=== PATIENT | male | born 1970 | race Caucasian/White ===

== ENCOUNTER 2019-10-21 21:50 | Inpatient (IN) ==
[2019-10-22] MEDS ORDERED: Naloxone 0.4 MG/ML INJ IVP PRN (00:53)
[2019-10-22 01:44] LABS: Basophils # 0.1 K/mcL (0.0-0.2); Basophils % 0.8 %; Eosinophils # 0.2 K/mcL (0.0-0.6); Eosinophils % 1.4 %; Hematocrit 50.4 % (37.5-50.1); Hemoglobin 16.3 g/dL (12.9-16.9); Immature Granulocytes % 0.3 % (0-4); Lymphocytes # 2.5 K/mcL (0.6-4.6); Lymphocytes % 20.3 %; Mean Corpuscular HGB Conc 32.3 g/dL (31.6-35.5); Mean Corpuscular Hemoglobin 31.1 pg (28.0-33.3); Mean Corpuscular Volume 96.2 fL (83.0-100.0); Mean Platelet Volume 9.9 fL (9.4-12.4); Monocytes # 0.9 K/mcL (0.0-1.3); Monocytes % 7.2 %; Neutrophils # 8.5 K/mcL (1.6-8.9); Platelet Count 263 K/mcL (140-400); Red Blood Count 5.24 M/mcL (4.19-5.50); Red Cell Distribution Width 12.6 % (11.5-14.5); White Blood Count 12.2 K/mcL (4.3-11.1)
[2019-10-22 02:04] LABS: BUN/Creatinine Ratio 11 (6-26); Blood Urea Nitrogen 10 mg/dL (6-20); Calcium 9.1 mg/dL (8.6-10.3); Carbon Dioxide 24 mEq/L (23-29); Chloride 103 mEq/L (98-107); Glucose 107 mg/dL (70-105); Osmolality,Calculated 284 (280-300); Potassium 3.8 mEq/L (3.5-5.1); Sodium 137 mEq/L (136-145); eGFR For African Americans > 60 (> 60); eGFR For Non-African Americans > 60 (> 60)
[2019-10-22 02:11] LABS: Troponin I 0.35 ng/mL (< 0.04)
[2019-10-22] MEDS ORDERED: *HR* Heparin 5,000 UNIT/ML VIAL IVP PRN ×2 (03:58)
[2019-10-22] MEDS ORDERED: *HR* Heparin 5,000 UNIT/ML VIAL IVP ONE (03:58)
[2019-10-22] MEDS: Heparin 25,000 UNIT/250 ML D5W 25,000 UNIT/250 ML IV.SOLN IVC SCH ×2 (06:07→06:38)
[2019-10-22 07:12] LABS: Heparin anti-factor XA UFH 0.11 IU/mL (0.30-0.70); INR 1.1; Prothrombin Time 12.2 Seconds (9.4-12.1)
[2019-10-22] MEDS ORDERED: *HR* Heparin 10,000 UNIT/10 ML VIAL ONE (10:02)
[2019-10-22] MEDS ORDERED: ISOVUE-370 200 ML INFUS..BTL ONE (10:02)
[2019-10-22] MEDS ORDERED: Heparin 1,000 UNITS/500 mL 500 ML ONE (10:02)
[2019-10-22] MEDS ORDERED: Nitroglycerin 1,000 MCG/10 ML VIAL IV ONE (10:02)
[2019-10-22] MEDS ORDERED: 0.9 % Sodium Chloride 2,000 ML ONE (10:02)
[2019-10-22] MEDS: Aspirin Enteric Coated 81 MG Tablet PO SCH (11:20)
[2019-10-22] MEDS ORDERED: *HR* Midazolam HCl 2 MG/2 ML VIAL ONE (11:37)
[2019-10-22] MEDS ORDERED: *HR* FentaNYL (PF) 100 MCG/2 ML VIAL ONE (12:17)
[2019-10-22] MEDS ORDERED: *HR* Ticagrelor 90 MG TABLET ONE (12:35)
[2019-10-22] MEDS ORDERED: Acetaminophen 325 MG TABLET PO PRN (12:47)
[2019-10-22 13:59] LABS: Troponin I 0.55 ng/mL (< 0.04)
[2019-10-22 14:33] LABS: BUN/Creatinine Ratio 10 (6-26); Blood Urea Nitrogen 9 mg/dL (6-20); Calcium 8.7 mg/dL (8.6-10.3); Carbon Dioxide 22 mEq/L (23-29); Chloride 103 mEq/L (98-107); Glucose 99 mg/dL (70-105); Osmolality,Calculated 281 (280-300); Sodium 136 mEq/L (136-145); eGFR For African Americans > 60 (> 60); eGFR For Non-African Americans > 60 (> 60)
[2019-10-22] MEDS: *HR* Ticagrelor 90 MG TABLET PO SCH (19:48)
[2019-10-22] MEDS ORDERED: *HR* Heparin 5,000 UNIT/ML VIAL ONE (19:52)
[2019-10-22] MEDS: *HR* Heparin 5,000 UNIT/ML VIAL SQ SCH (19:52)
[2019-10-23 06:00] LABS: Basophils # 0.1 K/mcL (0.0-0.2); Eosinophils # 0.2 K/mcL (0.0-0.6); Eosinophils % 1.7 %; Hematocrit 50.9 % (37.5-50.1); Hemoglobin 17.3 g/dL (12.9-16.9); Immature Granulocytes % 0.5 % (0-4); Lymphocytes # 2.1 K/mcL (0.6-4.6); Lymphocytes % 18.6 %; Mean Corpuscular Volume 94.1 fL (83.0-100.0); Monocytes # 1.2 K/mcL (0.0-1.3); Monocytes % 10.4 %; Neutrophils # 7.5 K/mcL (1.6-8.9); Platelet Count 253 K/mcL (140-400); Red Blood Count 5.41 M/mcL (4.19-5.50); Red Cell Distribution Width 12.4 % (11.5-14.5); Segmented Neutrophils % 67.8 %; White Blood Count 11.1 K/mcL (4.3-11.1)
[2019-10-23 06:23] LABS: BUN/Creatinine Ratio 13 (6-26); Blood Urea Nitrogen 13 mg/dL (6-20); Calcium 9.7 mg/dL (8.6-10.3); Carbon Dioxide 22 mEq/L (23-29); Chloride 105 mEq/L (98-107); Cholesterol 174 mg/dL (< 200); Glucose 112 mg/dL (70-105); HDL Cholesterol 29 mg/dL (40-59); LDL Cholesterol,Calculated 113 mg/dL (< 100); Magnesium 2.3 mg/dL (1.6-2.6); Osmolality,Calculated 285 (280-300); Potassium 4.1 mEq/L (3.5-5.1); Sodium 137 mEq/L (136-145); Triglycerides 159 mg/dL (< 150); eGFR For African Americans > 60 (> 60); eGFR For Non-African Americans > 60 (> 60)
[2019-10-23] MEDS: *HR* Heparin 5,000 UNIT/ML VIAL SQ SCH (07:06)
[2019-10-23] MEDS: lisinopriL 5 MG TABLET PO SCH (07:45)
[2019-10-23] MEDS: *HR* Ticagrelor 90 MG TABLET PO SCH ×2 (07:46→20:08)
[2019-10-23] MEDS: Aspirin Enteric Coated 81 MG Tablet PO SCH (07:46)
[2019-10-23 10:02] LABS: Estimated Average Glucose 128 mg/dl
[2019-10-23] MEDS ORDERED: Isovue-370 500 ML BOTTLE IVP ONE (10:44)
[2019-10-23 16:00] LABS: Bacteria,Urine Few per hpf (None-Few); Bilirubin,Urine Negative (Negative); Blood,Urine Large (Negative); Clarity,Urine Turbid (Clear); Color,Urine Light-Orange (Yellow); Glucose,Urine (UA) Normal (Normal); Hyaline Casts,Urine Many per lpf (None Seen); Ketones,Urine Negative (Negative); Leukocyte Esterase,Urine Small (Negative); Mucus,Urine Many per lpf (None-Few); Nitrite,Urine Negative (Negative); PH,Urine 6.5 pH Units (5.0-8.0); Protein,Urine 100 mg/dL (Neg-Trace); RBC,Urine TNTC per hpf (0-3); Specific Gravity,Urine 1.012 (1.010-1.025); Squamous Epithelial Cell,Urine Few per hpf (None-Few); Urobilinogen,Urine Normal (Normal); WBC,Urine 15-30 per hpf (0-3)
[2019-10-23] MEDS ORDERED: *HR* OxyCODONE/APAP 5/325 TABLET PO PRN (16:58)
[2019-10-24 07:37] VITALS: BP 120/95
[2019-10-24 08:11] LABS: Hematocrit 53.9 % (37.5-50.1); Hemoglobin 17.7 g/dL (12.9-16.9)
[2019-10-24] MEDS: lisinopriL 5 MG TABLET PO SCH (08:12)
[2019-10-24] MEDS: *HR* Ticagrelor 90 MG TABLET PO SCH (08:12)
[2019-10-24] MEDS: Aspirin Enteric Coated 81 MG Tablet PO SCH (08:12)
== END 2019-10-24 10:41 | disposition home or self-care (01) | DRG 247 ==
LOC: 2NNU → SUATTDRO 23:30
PROVIDERS: ADMIT Internal Medicine; ATTEND Internal Medicine

== ENCOUNTER 2020-02-25 09:24 | Inpatient (IN) ==
[2020-02-25] MEDS ORDERED: CeFAZolin Syr 2,000MG/20 ML 2,000 MG/20 ML SYRINGE IVPB ONE (09:35)
[2020-02-25] MEDS ORDERED: Ringers Solution, Lactated 1,000 ML IVC SCH (09:45)
[2020-02-25] MEDS ORDERED: *HR* OxyCODONE Immed Rel 5 MG TABLET PO PRN (10:24)
[2020-02-25] MEDS ORDERED: Famotidine 20 MG/2 ML VIAL IVP ONE (10:24)
[2020-02-25] MEDS ORDERED: *HR* Labetalol 20 MG/4 ML SYRINGE IVP PRN (10:24)
[2020-02-25] MEDS ORDERED: *HR* HYDROmorphone 2 MG TABLET PO PRN (10:24)
[2020-02-25] MEDS ORDERED: Acetaminophen IV 1,000 MG/100 ML INFUS..BTL IVPB ONE (10:24)
[2020-02-25] MEDS ORDERED: *HR* Propofol 200 MG/20 ML VIAL IVP ONE ×2 (10:31→12:25)
[2020-02-25] MEDS ORDERED: *HR* FentaNYL (PF) 100 MCG/2 ML VIAL ONE (10:31)
[2020-02-25] MEDS ORDERED: *HR* Midazolam HCl 2 MG/2 ML VIAL ONE (10:31)
[2020-02-25] MEDS ORDERED: Ondansetron 4 MG/2 ML VIAL ONE (10:32)
[2020-02-25] MEDS ORDERED: Dexamethasone 4 MG/ML VIAL ONE (10:32)
[2020-02-25] MEDS ORDERED: *HR* Rocuronium Bromide 50 MG/5 ML VIAL ONE (10:32)
[2020-02-25] MEDS ORDERED: Lidocaine -MPF 2% 2 ML VIAL ONE (10:32)
[2020-02-25] MEDS ORDERED: *HR* Heparin 5,000 UNIT/ML VIAL ONE (10:37)
[2020-02-25] MEDS ORDERED: Lidocaine 1% 20 ML MDV ONE (10:37)
[2020-02-25] MEDS ORDERED: *HR* Remifentanil 1 MG VIAL IVP ONE (10:40)
[2020-02-25] MEDS ORDERED: *HR* Phenylephrine 10 MG/ML VIAL ONE (10:41)
[2020-02-25] MEDS ORDERED: *HR* PHENYLEPHRINE 1,000 MCG/10 ML SYRINGE IVP ONE (11:47)
[2020-02-25] MEDS ORDERED: *HR* HYDROMORPHONE 2 MG/ML VIAL ONE (12:27)
[2020-02-25] MEDS: *HR* HYDROmorphone (PF) 1 MG/ML SYRINGE IVP PRN ×2 (12:55→13:05)
[2020-02-25] MEDS ORDERED: Naloxone 0.4 MG/ML INJ IVP PRN (13:43)
[2020-02-25] MEDS ORDERED: *HR* HYDROcodone/Acet 5/325 mg TABLET PO PRN (13:43)
[2020-02-25] MEDS: Gabapentin 300 MG CAPSULE PO SCH ×2 (15:16→20:27)
[2020-02-25] MEDS: 0.9 % Sodium Chloride 1,000 ML IVC SCH (15:16)
[2020-02-25] MEDS: *HR* Heparin 5,000 UNIT/ML VIAL SQ SCH ×2 (15:17→20:26)
[2020-02-25] MEDS: Ipratropium/Albuterol Neb 3 ML IH SCH ×3 (16:30→23:46)
[2020-02-25] MEDS: Famotidine 20 MG TABLET PO SCH (17:16)
[2020-02-25] MEDS: Sennosides/Docusate Sodium TABLET PO SCH (20:26)
[2020-02-26] MEDS: 0.9 % Sodium Chloride 1,000 ML IVC SCH (03:25)
[2020-02-26] MEDS: Ipratropium/Albuterol Neb 3 ML IH SCH ×3 (04:02→11:15)
[2020-02-26 05:02] LABS: Hematocrit 42.1 % (37.5-50.1); Hemoglobin 13.4 g/dL (12.9-16.9); Mean Corpuscular HGB Conc 31.8 g/dL (31.6-35.5); Mean Corpuscular Hemoglobin 31.1 pg (28.0-33.3); Mean Corpuscular Volume 97.7 fL (83.0-100.0); Mean Platelet Volume 9.9 fL (9.4-12.4); Platelet Count 274 K/mcL (140-400); Red Blood Count 4.31 M/mcL (4.19-5.50); Red Cell Distribution Width 12.6 % (11.5-14.5)
[2020-02-26] MEDS: *HR* Heparin 5,000 UNIT/ML VIAL SQ SCH (05:03)
[2020-02-26 05:22] LABS: BUN/Creatinine Ratio 15 (6-26); Blood Urea Nitrogen 16 mg/dL (6-20); Carbon Dioxide 24 mEq/L (23-29); Chloride 105 mEq/L (98-107); Glucose 142 mg/dL (70-105); Osmolality,Calculated 286 (280-300); Potassium 4.1 mEq/L (3.5-5.1); Sodium 136 mEq/L (136-145); eGFR For African Americans > 60 (> 60); eGFR For Non-African Americans > 60 (> 60)
[2020-02-26] MEDS: Gabapentin 300 MG CAPSULE PO SCH (07:51)
[2020-02-26] MEDS: Sennosides/Docusate Sodium TABLET PO SCH (07:51)
[2020-02-26] MEDS: Famotidine 20 MG TABLET PO SCH (07:52)
[2020-02-26] MEDS ORDERED: Aspirin Enteric Coated 81 MG Tablet PO SCH (09:00)
[2020-02-26] MEDS ORDERED: lisinopriL 5 MG TABLET PO SCH (09:00)
[2020-02-26 11:33] VITALS: BP 125/83
== END 2020-02-26 13:30 | disposition home or self-care (01) | DRG 447 ==
LOC: SAMDAY 09:24 → 2NNU 13:40
PROVIDERS: ADMIT Thoracic Surgery (Cardiothoracic Vascular Surgery); ATTEND Thoracic Surgery (Cardiothoracic Vascular Surgery)